=== PATIENT | female | born 2000 | race Caucasian/White ===

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

== ENCOUNTER 2021-01-05 13:26 | Emergency (ER) | payer OTHER ==
[2021-01-05 13:39] VITALS: BP 100/65; PULSE 87; TEMP 97.8; BMI 22.9
[2021-01-05] MEDS ORDERED: FAMOTIDINE 20 MG/50 ML IVPB 20 MG/50 ML MG IVPB ONE (14:02)
[2021-01-05] MEDS ORDERED: SODIUM CHLORIDE 1,000 ML IV STA (14:02)
[2021-01-05] MEDS ORDERED: MAG HYDROX/AL HYDROX/SIMETH 30 ML UNIT-DOSE CUP PO ONE (14:03)
[2021-01-05] MEDS ORDERED: ACETAMINOPHEN 1000 MG/100 ML VIAL (NON FORMULARY) IVPB ONE (14:03)
[2021-01-05] MEDS ORDERED: MAG HYDROX/AL HYDROX/SIMETH 30 ML UNIT-DOSE CUP ONE (14:22)
[2021-01-05] MEDS ORDERED: ACETAMINOPHEN INJECTION 100 ML IVPB ONE (14:22)
[2021-01-05] MEDS ORDERED: FLUCONAZOLE 50 MG TABLET PO ONE (14:36)
[2021-01-05 14:54] LABS: BASO % 0.6 % (0-2.0); EOS % 2.2 % (0-4.5); HEMATOCRIT 40.5 % (32.4-45.2); HEMOGLOBIN 13.6 GM/dL (10.7-15.3); LYMPH % 24.4 % (8-40); MCH 28.2 pg (25.7-33.7); MCHC 33.5 g/dl (32.0-36.0); MEAN CELL VOLUME 84.1 fl (80-96); MEAN PLT VOLUME 8.1 fl (7.5-11.1); MONO % 10.1 % (3.8-10.2); NEUT % 62.7 % (42.8-82.8); PLATELET COUNT 265 10^3/uL (134-434); RBC 4.82 M/mm3 (3.60-5.2); RDW 14.4 % (11.6-15.6); WHITE BLOOD COUNT 6.1 K/mm3 (4.0-10.0)
[2021-01-05 15:04] LABS: PH,URINE 6.5 (5.0-8.0); URINE APPEARANCE CLEAR; URINE BILIRUBIN NEGATIVE (NEGATIVE); URINE COLOR YELLOW; URINE GLUCOSE (UA) NEGATIVE (NEGATIVE); URINE KETONE NEGATIVE (NEGATIVE); URINE LEUK ESTERASE NEGATIVE (NEGATIVE); URINE NITRITE NEGATIVE (NEGATIVE); URINE PROTEIN NEGATIVE (NEGATIVE); URINE UROBILINOGEN 0.2 mg/dL (0.2-1.0)
[2021-01-05] MEDS ORDERED: FLUCONAZOLE 150 MG TABLET PO ONE (15:07)
[2021-01-05 15:11] LABS: HCG,QUALITATIVE URINE Negative
[2021-01-05 15:15] LABS: ALBUMIN 4.2 g/dl (3.4-5.0); CALCIUM 9.6 mg/dL (8.5-10.1)
[2021-01-05 15:16] LABS: BLOOD UREA NITROGEN 13.1 mg/dL (7-18)
[2021-01-05 15:18] LABS: CREATININE 0.7 mg/dL (0.55-1.3)
[2021-01-05 15:20] LABS: BILIRUBIN,TOTAL 0.3 mg/dL (0.2-1); TOT PROT 7.6 g/dl (6.4-8.2)
== END 2021-01-05 16:04 | disposition home or self-care (01) ==
LOC: JER 13:26
PROC: 3E0333Z Introduction of Anti-inflammatory into Peripheral Vein, Percutaneous Approach (ICD-10-PCS; principal; 2021-01-05)
PROC: 3E033GC Introduction of Other Therapeutic Substance into Peripheral Vein, Percutaneous Approach (ICD-10-PCS; 2021-01-05)
PROC: 3E0337Z Introduction of Electrolytic and Water Balance Substance into Peripheral Vein, Percutaneous Approach (ICD-10-PCS; 2021-01-05)
DX: B37.9 Candidiasis, unspecified (principal)
CPT/HCPCS: 36415; 80053; 81003; 83690; 84703; 85025; 87070; 87077; 87086; 87205; 87491; 87591; 99284-25; J0131

== ENCOUNTER 2021-11-11 10:16 | Emergency (ER) | payer OTHER ==
[2021-11-11 10:26] VITALS: BP 101/66; PULSE 80; TEMP 98.4; BMI 28.3
[2021-11-11] MEDS ORDERED: cefTRIAXone SODIUM 1 GM VIAL ONE (12:41)
[2021-11-11 13:08] LABS: URINE APPEARANCE CLEAR; URINE BILIRUBIN NEGATIVE (NEGATIVE); URINE COLOR YELLOW; URINE GLUCOSE (UA) NEGATIVE (NEGATIVE); URINE KETONE NEGATIVE (NEGATIVE); URINE LEUK ESTERASE NEGATIVE (NEGATIVE); URINE NITRITE NEGATIVE (NEGATIVE); URINE PROTEIN NEGATIVE (NEGATIVE); URINE UROBILINOGEN 0.2 mg/dL (0.2-1.0)
[2021-11-11 13:11] LABS: HCG,QUALITATIVE URINE Negative
== END 2021-11-11 13:17 | disposition home or self-care (01) ==
LOC: JERFT 10:16
PROC: 3E0233Z Introduction of Anti-inflammatory into Muscle, Percutaneous Approach (ICD-10-PCS; principal; 2021-11-11)
DX: N89.8 Other specified noninflammatory disorders of vagina (principal)
CPT/HCPCS: 36415; 81003; 84703; 87070; 87077; 87086; 87205; 87491; 87591; 99284-25

== ENCOUNTER 2021-12-12 14:46 | Emergency (ER) | payer OTHER ==
[2021-12-12 15:05] VITALS: BP 109/64; PULSE 103; TEMP 98.3; BMI 30.3
[2021-12-12] MEDS ORDERED: IBUPROFEN 600 MG TABLET (FP) PO ONE ×2 (17:09→17:14)
== END 2021-12-12 17:31 | disposition home or self-care (01) ==
LOC: JER 14:46
DX: M25.571 Pain in right ankle and joints of right foot (principal)
CPT/HCPCS: 73610-TC-RT-FY; 73630-TC-RT-FY; 99283-25

== ENCOUNTER 2022-02-06 14:47 | Emergency (ER) | payer OTHER ==
[2022-02-06 14:58] VITALS: BP 94/66; PULSE 92; RESP 19; TEMP 98.6; BMI 27.1
[2022-02-06] MEDS ORDERED: LORATADINE 10 MG TABLET PO ONE (15:31)
== END 2022-02-06 16:12 | disposition home or self-care (01) ==
LOC: JERFT 14:47
DX: L25.9 Unspecified contact dermatitis, unspecified cause (principal)
CPT/HCPCS: 99283-25

== ENCOUNTER 2022-05-06 18:06 | Emergency (ER) | payer OTHER ==
[2022-05-06 18:14] VITALS: BP 109/69; PULSE 112; RESP 18; TEMP 98.1; BMI 27.2
== END 2022-05-06 18:44 | disposition home or self-care (01) ==
LOC: JER 18:06
DX: J06.9 Acute upper respiratory infection, unspecified (principal)
CPT/HCPCS: 0241U-QW; 99283-25

== ENCOUNTER 2023-04-19 17:24 | Emergency (ER) | payer OTHER ==
[2023-04-19 17:59] VITALS: BP 115/75; PULSE 79; RESP 20; TEMP 98; BMI 27.1
[2023-04-19 18:46] LABS: EPI CELLS 30 /uL (0-25.1); HYALINE CASTS 1 /uL (0-3.1); URINE APPEARANCE CLEAR; URINE BACTERIA 150 /uL (0-1359); URINE BILIRUBIN NEGATIVE (NEGATIVE); URINE COLOR YELLOW; URINE GLUCOSE (UA) NEGATIVE (NEGATIVE); URINE KETONE NEGATIVE (NEGATIVE); URINE LEUK ESTERASE NEGATIVE (NEGATIVE); URINE NITRITE NEGATIVE (NEGATIVE); URINE PROTEIN NEGATIVE (NEGATIVE); URINE RBC 18 /uL (0-23.9); URINE UROBILINOGEN 0.2 mg/dL (0.2-1.0); URINE WBC 1 /uL (0-25.8)
[2023-04-19 19:22] LABS: BASO % 0.5 % (0-2.0); EOS % 2.8 % (0-4.5); HEMATOCRIT 38.1 % (32.4-45.2); HEMOGLOBIN 12.7 GM/dL (10.7-15.3); LYMPH % 30.6 % (8-40); MCH 27.3 pg (25.7-33.7); MCHC 33.3 g/dl (32.0-36.0); MEAN CELL VOLUME 81.9 fl (80-96); MEAN PLT VOLUME 7.8 fl (7.5-11.1); NEUT % 59.1 % (42.8-82.8); PLATELET COUNT 333 10^3/uL (134-434); RBC 4.65 M/mm3 (3.60-5.2); WHITE BLOOD COUNT 6.9 K/mm3 (4.0-10.0)
[2023-04-19 19:54] LABS: POTASSIUM 3.8 mmol/L (3.5-5.1)
[2023-04-19 19:56] LABS: CALCIUM 9.4 mg/dL (8.5-10.1)
[2023-04-19 19:57] LABS: ALBUMIN 4.3 g/dl (3.4-5.0); BLOOD UREA NITROGEN 13.5 mg/dL (7-18)
[2023-04-19 20:00] LABS: CREATININE 0.7 mg/dL (0.55-1.3)
[2023-04-19 20:02] LABS: BILIRUBIN,TOTAL 0.3 mg/dL (0.2-1); TOT PROT 7.8 g/dl (6.4-8.2)
== END 2023-04-19 20:18 | disposition home or self-care (01) ==
LOC: JER 17:24
DX: N93.9 Abnormal uterine and vaginal bleeding, unspecified (principal); N83.02 Follicular cyst of left ovary
CPT/HCPCS: 36415; 76830-TC; 80053; 81003; 84703; 85025; 86780; 87491; 87591; 99284-25

== ENCOUNTER 2023-04-30 12:45 | Emergency (ER) | payer OTHER ==
[2023-04-30 13:16] VITALS: BP 102/72; PULSE 86; RESP 18; TEMP 98.4; BMI 29.2
[2023-04-30] MEDS ORDERED: ACETAMINOPHEN 500 MG TABLET (FP) PO ONE (13:50)
[2023-04-30] MEDS ORDERED: ACETAMINOPHEN 500 MG TABLET (FP) ONE (13:52)
== END 2023-04-30 15:26 | disposition home or self-care (01) ==
LOC: JER 12:45 → JERFT 12:45
DX: M54.9 Dorsalgia, unspecified (principal); R07.9 Chest pain, unspecified; M25.559 Pain in unspecified hip; M79.10 Myalgia, unspecified site; V49.50XA Passenger injured in collision with unspecified motor vehicles in traffic accident, initial encounter
CPT/HCPCS: 71046-TC-FY; 73521-TC-FY; 84703; 93005; 93010; 99285-25